=== PATIENT | female | born 1980 ===

== ENCOUNTER → 2023-01-08 13:19 | Outpatient (CLI) | payer OTHER, SELFPAY ==
--- NOTE | 2023-01-08 | DI.MG.S_ITS ---
BILATERAL DIGITAL DIAGNOSTIC MAMMOGRAM 3D/2D: 01/08/2023 CLINICAL: Right enlarged breast. Comparison is made to exams dated: 02/21/2022 mammogram, 11/17/2020 mammogram - outside facility, and 10/23/2019 mammogram - outside location. Both breasts are heterogeneously dense, which may obscure small masses (category c / 51-75% glandular tissue). No significant masses, calcifications, or other findings are seen in either breast. IMPRESSION: INCOMPLETE: NEEDS ADDITIONAL IMAGING EVALUATION No mammographic evidence of malignancy. A targeted ultrasound is recommended and will immediately follow. Based on the Tyrer Cuzick model (a risk assessment model) the patient's lifetime risk is 14.7% and her 10 year risk is 2.4%. According to the ACR, ACS, and NCCN guidelines, an annual breast MRI exam along with mammogram is recommended if the patient's lifetime risk is 20% or greater. This exam was interpreted at Station ID: [id number]. NOTE: For mammograms, a report in lay terms will be sent to the patient. Approximately 15% of breast malignancies will not be visualized mammographically. In the management of a palpable breast mass, a negative mammogram must not discourage biopsy of a clinically suspicious lesion. Electronically Signed By: Poncho Cruz M.D. slc/:01/08/2023 14:20:38 ACR BI-RADS Category 0: Incomplete [id number]
--- NOTE | 2023-01-08 | DI.US.S_ITS ---
LIMITED ULTRASOUND OF RIGHT BREAST: 01/08/2023 CLINICAL: Right breast enlargement. Comparison is made to exams dated: 01/08/2023 mammogram - [facility], 11/17/2020 mammogram, 02/21/2022 mammogram - outside facility, and 10/23/2019 mammogram - outside location. Color flow and real-time ultrasound of the right breast 9-12 o'clock region were performed. Schilling scale images of the real-time examination were reviewed. No significant abnormalities were seen sonographically in the right breast. No mass or significant cysts. IMPRESSION: NEGATIVE There is no sonographic evidence of malignancy. No mass or significant cysts. Exam findings were conveyed to the patient. Patient is advised to monitor for significant change. Clinical follow-up as needed. A 1 year screening mammogram is recommended. This exam was interpreted at Station ID: [id number]. Electronically Signed By: Poncoh Cruz M.D. slc/:01/08/2023 15:02:25 letter sent: Normal Exam Ultrasound BI-RADS: 1 Negative
== END ==
PROVIDERS: PCP Family Medicine; Referring Provider Nurse Practitioner Women's Health; Visit Provider Nurse Practitioner Women's Health
DX: N64.89 Other specified disorders of breast (principal); R92.2 Inconclusive mammogram
CPT/HCPCS: 76642; 77066; G0279